=== PATIENT | female | born 1985 | race American Indian/Alaskan Native ===

== ENCOUNTER 2018-11-07 01:39 | Emergency (ER) | payer BC, MEDICAID ==
[2018-11-07] MEDS ORDERED: Naloxone 2 MG/2 ML Syringe ONE ×2 (01:45→01:58)
[2018-11-07] MEDS ORDERED: Sodium Chloride 0.9% 10 ML Syringe FLUSH PRN (01:52)
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
[2018-11-07] MEDS ORDERED: Sodium Chloride 0.9% 1,000 ML IV SCH ×2 (02:00→05:45)
[2018-11-07] MEDS ORDERED: Dextrose 5%-Lactated Ringers 1,000 ML IV SCH (03:30)
== END 2018-11-07 11:15 | disposition home or self-care (01) ==
LOC: JD.ED 01:39
DX: F10.920 Alcohol use, unspecified with intoxication, uncomplicated (principal); Y90.8 Blood alcohol level of 240 mg/100 ml or more
CPT/HCPCS: 36415; 80053; 80306; 85007; 85027; 94762; 96361; 96374; 99284; G0480; J2310; J7040; J7042; 99283

== ENCOUNTER 2018-12-02 02:31 | Emergency (ER) | payer SELFPAY ==
[2018-12-02] MEDS ORDERED: Acetaminophen 325 MG Tab PO ONE (02:37)
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
== END 2018-12-02 02:54 ==
LOC: JD.ED 02:31
DX: F10.129 Alcohol abuse with intoxication, unspecified (principal); Z88.0 Allergy status to penicillin
CPT/HCPCS: 99284; A9270; 99281

== ENCOUNTER 2021-01-09 23:17 | Emergency (ER) | payer MEDICAID | END 2021-01-09 23:49 | disposition left against medical advice (07) | LOC: SUPCPDRO 23:17 → JD.ED 23:17 | DX: R56.9 Unspecified convulsions (principal); Z53.21 Procedure and treatment not carried out due to patient leaving prior to being seen by health care provider ==

== ENCOUNTER 2021-02-02 17:14 | Emergency (ER) | payer MEDICAID ==
--- NOTE | 2021-02-02 18:07 | EDM.PDOC ---
ED HPI GENERAL MEDICAL PROBLEM - General Chief Complaint: Upper Extremity Injury/Pain Stated Complaint: L HAND INJURY Time Seen by Provider: 02/02/21 17:29 Source of Information: Reports: Patient, RN Notes Reviewed - History of Present Illness INITIAL COMMENTS - FREE TEXT/NARRATIVE: 35 yr old pt injured L hand early this morning about 16 hrs ago. Continued pain, swelling radial aspect of hand. Difficult to move fingers. Has been drinking alcohol heavily for about 2 months. Interested in out patient resources that would be available. Has been through at least 1 treatment program in the past. Left Hand Pain Score (Numeric/FACES): 7 - Related Data Allergies Allergy/AdvReac Type Severity Reaction Status Date / Time amoxicillin Allergy Severe Airway Verified 02/02/21 17:31 Tightness Dairy Products Allergy Severe Nausea Verified 02/02/21 17:31 Penicillins Allergy Severe Hives Verified 02/02/21 17:31 Home Meds: Home Meds . [No Known Home Meds] 02/02/21 [History] Social & Family History - Tobacco Use Tobacco Use Status *Q: Current Every Day Tobacco User Years of Tobacco use: 15 Packs/Tins Daily: 1 - Recreational Drug Use Recreational Drug Use: Yes Drug Use in Last 12 Months: Yes Recreational Drug Type: Reports: Marijuana/Hashish Recreational Drug Use Frequency: Socially Review of Systems - Review of Systems Review Of Systems: See Below Mouth/Throat: Reports: No Symptoms Respiratory: Denies: Shortness of Breath Cardiovascular: Denies: Chest Pain Musculoskeletal: Reports: Other (pain radial aspect of L hand) Skin: Reports: Bruising Neurological: Denies: Numbness, Tingling ED EXAM, GENERAL - Physical Exam Exam: See Below General Appearance: Alert, Mild Distress Head: Atraumatic Neck: Supple Respiratory/Chest: No Respiratory Distress, Lungs Clear, Normal Breath Sounds Cardiovascular: Regular Rate, Rhythm Extremities: Other (moderate tenderness, mild swelling and bruising radial aspect of L hand and 4th and 5th MCPs. wrist nontender. Pain with motion L small and 4th finger. ) Neurological: Alert, Oriented, No Motor/Sensory Deficits Psychiatric: Normal Affect, Normal Mood Skin Exam: Warm, Dry, Normal Color Course - Vital Signs Last Recorded V/S: Last Vital Signs Temp 97 F 02/02/21 17:27 Pulse 84 02/02/21 17:27 Resp 16 02/02/21 17:27 BP 115/78 02/02/21 17:27 Pulse Ox 97 02/02/21 17:27 - Orders/Labs/Meds Orders: Active Orders 24 hr Category Date Time Status Hand Comp Min 3V Lt [CR] Stat Exams 02/02/21 17:59 Taken Durable Medical Equipment for Discharge [DME for Oth 02/02/21 18:58 Ordered Discharge] [COMM] Stat Meds: Medications Discontinued Medications Generic Name Dose Route Start Last Admin Trade Name Marvin PRN Reason Stop Dose Admin Lorazepam 1 mg 02/02/21 18:57 02/02/21 19:10 Lorazepam 1 Mg Tab PO 02/02/21 18:58 1 mg ONETIME ONE Administration - Re-Assessments/Exams Free Text/Narrative Re-Assessment/Exam: 02/02/21 19:08. X rays of hand show no demonstrable fx. Have ordered velcroe wrist splint. She is determined to stop drinking. No alcohol so far today. Have ordered ativan 1 mg PO for now. Discharge instr. as documented Departure - Departure Time of Disposition: 19:10 Disposition: Home, Self-Care 01 Preliminary Cause of *Q: Sepsis & Multi System Organ Failure Condition: Fair Clinical Impression: Alcohol abuse Contusion, hand Qualifiers: Encounter type: initial encounter Laterality: left Qualified Code(s): S60.222A - Contusion of left hand, initial encounter - Discharge Information Instructions: Alcohol Use Disorder, Contusion, [id number] Referrals: Amelia Deutsch PA-C [Primary Care Provider] - Forms: ED Department Discharge Additional Instructions: Velcro wrist splint to give protection for L hand and wrist. Alternate tylenol and ibuprofen for pain. Continue to avoid alcohol. Ativan 1 mg 2 to 3 times daily for 2 days and than 1/2 mg 2 to 3 times daily for the next 2 to 3 days as needed. Contact [facility] for further outpatient help and treatment. They have open enrollment at their office 8 AM Wednesday - Wednesday. Follow up clinic as needed. Return to ED as needed if symptoms worsening in any way. Sepsis Event Note (ED) - Evaluation Sepsis Screening Result: No Definite Risk - My Orders Last 24 Hours: My Active Orders 02/02/21 17:59 Hand Comp Min 3V Lt [CR] Stat 02/02/21 18:58 Durable Medical Equipment for Discharge [DME for Discharge] [COMM] Stat - Assessment/Plan Last 24 Hours: My Active Orders 02/02/21 17:59 Hand Comp Min 3V Lt [CR] Stat 02/02/21 18:58 Durable Medical Equipment for Discharge [DME for Discharge] [COMM] Stat
[2021-02-02] MEDS ORDERED: LORazepam 1 MG Tab PO ONE (18:57)
--- NOTE | 2021-02-03 07:34 | CR ---
Left hand: 4 views of the left hand were obtained. Comparison: No prior hand study is available. Minimal calcification is noted between the radius and ulna which is felt to be old. Questionable lucency at the base of the fifth metacarpal is noted within the fifth digit suspicious but not conclusive for nondisplaced fracture. No additional bony abnormality is appreciated. Impression: 1. Possible nondisplaced fracture within the base of the fifth metacarpal. Please correlate with the patient's symptoms. 2. Incidental calcification as noted above. Diagnostic code #3
== END 2021-02-02 19:26 | disposition home or self-care (01) ==
LOC: JD.ED 17:14
DX: S60.222A Contusion of left hand, initial encounter (principal); F10.10 Alcohol abuse, uncomplicated; Z72.0 Tobacco use; Z88.0 Allergy status to penicillin; Z91.011 Allergy to milk products; W22.8XXA Striking against or struck by other objects, initial encounter
CPT/HCPCS: 73130; 99283; A9270